=== PATIENT | female | born 1990 | race Caucasian/White ===

== ENCOUNTER 2017-10-17 11:30 | Outpatient (CLI) | payer MEDICAID ==
[~2017-10-17] VITALS: Ht 165.1 cm; Wt 84.0 kg
[~2017-10-17 11:30] MED LIST: CALC-649; FERR27TA; PREN1TAB49
[2017-10-17 11:33] VITALS: BP 136/86; PULSE 73; RESP 19; Ht 165.1 cm; Wt 84.0 kg
[2017-10-17] MEDS ORDERED: LEVO200T6 PO (11:36)
--- NOTE | 2017-10-17 12:44 | RADRPT ---
PROCEDURE: US OB. CLINICAL INDICATION: Size and dates TECHNIQUE: Multiple sonographic images of the pelvis and gravid uterus were obtained. The images were reviewed on a PACS workstation. COMPARISON: No prior studies are available for comparison. FINDINGS: There is a single viable intrauterine gestation. Cardiac activity is present with 146 beats per min [place]. There is a vertex presentation. The placenta is posterior. There is no evidence for an abruption or placenta previa. Measurements were made in order to determine age. The results are as follows: BPD =8.9 cm HC =31.8 cm AC =32.3 cm FL =6.6 cm Estimated gestational age of approximately 35 weeks and 4 days based on ultrasound measurements. Clinical age: 33 weeks and 6 days. The estimated date of delivery is 11/17/17, based on ultrasound measurements. The EFW = 2714 g, 89%, based on LMP age. RPTAT: AA IMPRESSION: Single viable intrauterine gestation of approximately 35 weeks and 4 days based on ultrasound measu rements. Larger than clinical age by almost 2 weeks. .Erick Conner MD, MD Date Time Electronically viewed and signed by .Erick Conner MD, on 10/17/2017 12:44 .S/
--- NOTE | 2017-10-17 12:46 | RADRPT ---
PROCEDURE: US OB biophysical profile. Ultrasound cervix CLINICAL INDICATION: decreased movements, vaginal spotting TECHNIQUE: Multiple sonographic images of the pelvis were obtained. In addition, transvaginal joao ges of the cervix were obtained. The images were reviewed on a PACS workstation. COMPARISON: No prior studies are available for comparison. FINDINGS: The cervix measures 2.3 cm in length. There is a single viable intrauterine gestation. Cardiac activity is present with 146 beats per min [place]. There is a vertex presentation. The placenta is posterior. There is no evidence of placental abruption. There is a normal amount of amniotic fluid with an MANUEL = 14.7 cm. Biophysical profile: movement 2/2 tone 2/2. breathing 2/2 MANUEL 2/2 Total 05/29 RPTAT: AA . IMPRESSION: Normal biophysical profile. Cervix measures 2.3 cm in length. .Erick Conner MD, MD Date Time Electronically viewed and signed by .Erick Conner MD, on 10/17/2017 12:45 .S/
[2017-10-17 14:12] LABS: ADD UMIC YES; UR ASCORBIC ACID NEGATIVE (NEGATIVE); UR BILIRUBIN (Dip) NEGATIVE (NEGATIVE); UR BLOOD (Dip) 3+ mg/dL (NEGATIVE); UR CLARITY SLIGHTLY CLOUDY (CLEAR); UR COLOR YELLOW (YELLOW); UR GLUCOSE (Dip) NEGATIVE (NEGATIVE); UR KETONES (Dip) NEGATIVE (NEGATIVE); UR LEUKOCYTE ESTERASE (Dip) 2+ Leu/ul (NEGATIVE); UR MUCUS FEW /HPF (NONE SEEN); UR NITRITE (Dip) NEGATIVE (NEGATIVE); UR RBC 1 /HPF (0-5); UR SPECIFIC GRAVITY (Dip) 1.017 (1.003-1.030); UR SQUAMOUS EPITHELIAL CELL FEW /HPF (FEW); UR TOTAL PROTEIN (Dip) NEGATIVE (NEGATIVE); UR UROBILINOGEN (Dip) NEGATIVE (NEGATIVE)
[2017-10-17] MEDS ORDERED: BETAMET NA PHOS/AC(6 MG/ML) 5ML INJ IM ONE (15:00)
--- NOTE | 2017-10-17 16:15 | TRIAGE ---
OB Triage Datetime Report Generated by CPN: 10/17/2017 16:14 Datetime: 10/17/2017 15:34 Labor Evaluation Frequency: 0 Monitor Mode: External Pattern: Normal: <= 5 Contractions in 10 Minutes Resting Tone [place]: Relaxed Heart Rate FHR Baseline Rate: 125 Monitor Mode: External US Variability: Moderate 6-25 bpm Accelerations: 10X10 Decelerations: None Category: Category I Pain Assessment Pain Scale: 0 Pain Presence: None/Denies Pain Type: N/A Pain Goal: 10 Pain Relief Measures: Comfort Measures Datetime: 10/17/2017 15:08 Decelerations: None Datetime: 10/17/2017 14:50 Stage of : OB Triage Datetime: 10/17/2017 14:19 Labor Evaluation Frequency: 0 Monitor Mode: External Resting Tone [place]: Relaxed Heart Rate FHR Baseline Rate: 135 Monitor Mode: External US Variability: Moderate 6-25 bpm Accelerations: 10X10 Decelerations: None Category: Category I Pain Assessment Pain Scale: 0 Pain Presence: None/Denies Pain Type: N/A Pain Goal: 3 Pain Relief Measures: Comfort Measures Datetime: 10/17/2017 13:19 Labor Evaluation Frequency: 0 Monitor Mode: External Pattern: Normal: <= 5 Contractions in 10 Minutes Resting Tone [place]: Relaxed Heart Rate FHR Baseline Rate: 125 Monitor Mode: External US Variability: Moderate 6-25 bpm Accelerations: 10X10 Decelerations: None Category: Category I Pain Assessment Pain Scale: 0 Pain Presence: None/Denies Pain Type: N/A Pain Goal: 3 Pain Relief Measures: Comfort Measures Datetime: 10/17/2017 13:13 Stage of : OB Triage Datetime: 10/17/2017 12:19 Labor Evaluation Frequency: 0 Monitor Mode: External Resting Tone [place]: Relaxed Heart Rate FHR Baseline Rate: 145 Monitor Mode: External US Variability: Moderate 6-25 bpm Decelerations: None Category: Category I Pain Assessment Pain Scale: 0 Pain Presence: None/Denies Pain Type: N/A Pain Goal: 3 Pain Relief Measures: Comfort Measures Datetime: 10/17/2017 12:04 Stage of : OB Triage Datetime: 10/17/2017 11:37 EGA: 33.6 Datetime: 10/17/2017 11:30 Assessment Type: Triage Time of Arrival: 10/17/2017 11:30 Arrived By: Ambulatory Arrived From: Home Chief Complaint: PT CAME IN C/O THAT SHE HAD SPOTTED LAST NIGHT AND DESCRIBES IT A LIGHT PINK C OLOR. DENIES HAVING ANY BLEEDING AT THIS TIME AND STATES + MOVEMENT. PT DENIES ANY OTHER COMPL ICATION Movement: Present Contractions: Denies/Absent Rupture of Membranes: Denies Vaginal Bleeding: None Vaginal Discharge: Denies Recent Sexual Intercouse: Denies Abdominal Trauma: Not Applicable Patient Complaints: Other Additional Patient Complaints: NONE Time Provider Notified: 10/17/2017 13:13 Provider Notified: DANIEL Initial Plan: NST AND BPP Maternal Assessment Level of Consciousness: Fully Conscious DTR's/Clonus: DTRs 2+; No Clonus Headache: Denies Blurred Vision: No Respiratory Effort: Unlabored; Regular Rhythm; Equal Expansion Breath Sounds, Left: Clear and Equal Breath Sounds, Right: Clear and Equal Nausea/Vomiting: Denies RUQ Epigastric Pain: Denies Lower Extremities Edema: None Degree: None Upper Extremities Edema: None Degree: None Facial Edema: None Fall Risk Assessment History of Falling: (0) No Secondary Diagnosis: (0) No Ambulatory Aid: (0) Bedrest/Nurse Assist IV Therapy: (0) No Gait: (0) Normal/Bedrest/Immobile Mental Status: (0) Oriented to Own Ability Fall Score: 0 Fall Risk Score Definition: No Risk: No action required
--- NOTE | 2017-10-17 17:31 | PN ---
Triage Information Date/Time 10/17/2017 Reason for visit: spotting Weeks of Gestation 33 weeks and 6 days /Para Diabetes: none Hypertention: none Additional information 27-year-old with IUP at 33 weeks and 6 days presented with complaint of spotting after urination. She denies any dysuria, leaking of fluid, vaginal discharge, decreased movement or uterine contractions. Patient noted to have borderline short cervix. Cervical length: 2.3 cm Objective Vital Signs Date Time Temp Pulse Resp B/P Pulse Ox O2 Delivery O2 Flow Rate FiO2 10/17/17 11:33 98.2 73 19 136/86 99 Room Air Heart Rate: 130's Contractions: None Exam General appearance: Alert and oriented 4. Patient does not appear to be in any acute distress. Abdomen: Soft, gravid, fundal height consistent with gestational age NST: Category 1 [place] no contractions UA: 3+ blood and 2+ leukocyte esterase consistent with possible UTI Rh: Positive Cervical length: 2.3 cm Results/Medications Results 24 hrs Laboratory Tests Test 10/17/17 13:15 Urine Color YELLOW Urine Clarity SLIGHTLY CLOUDY A Urine pH 7.0 Urine Specific [place] 1.017 Urine Ketones NEGATIVE Urine Nitrite NEGATIVE Urine Bilirubin NEGATIVE Urine Urobilinogen NEGATIVE Urine Leukocyte Esterase 2+ H Urine Microscopic RBC 1 Urine Microscopic WBC 4 Urine Squamous Epithelial Cells FEW Urine Mucus FEW A Urine Hemoglobin 3+ H Urine Glucose NEGATIVE Urine Total Protein NEGATIVE Imaging Results PROCEDURE: US OB biophysical profile. Ultrasound cervix CLINICAL INDICATION: decreased movements, vaginal spotting TECHNIQUE: Multiple sonographic images of the pelvis were obtained. In addition, transvaginal images of the cervix were obtained. The images were reviewed on a PACS workstation. COMPARISON: No prior studies are available for comparison. FINDINGS: The cervix measures 2.3 cm in length. There is a single viable intrauterine gestation. Cardiac activity is present with 146 beats per minute. There is a vertex presentation. The placenta is posterior. There is no evidence of placental abruption. There is a normal amount of amniotic fluid with an MANUEL = 14.7 cm. Biophysical profile: movement 2/2 tone 2/2. breathing 2/2 MANUEL 2/2 Total 8/8 RPTAT: AA . IMPRESSION: Normal biophysical profile. Cervix measures 2.3 cm in length. Disposition: Discharge Assessment/Plan IUP at 33 weeks and 6 days Spotting after urination UA consistent with UTI No clear evidence of labor. Cervix is borderline shorts: Cervical length 2.3 cm No contraction the monitor seen Rh+ We will treat for UTI. Treatment with Keflex 500 mg 4 times daily for 7 days will be given. Instruction for adequate hydration discussed Patient was advised to get steroid due to possibility and risk of labor. Received first dose of steroid in the triage Return to triage tomorrow after 24 hours to receive second dose of steroid Strict labor precaution and kick count and follow-up within 2-3 days with her primary [employer] discussed with the patient Patient verbalized understanding Return to triage as needed having any contraction, fever, chills, decreased movement or any other concern. Patient verbalized understanding. All questions were answered. OPAL SANCHEZ MD Oct 17, 2017 17:31
== END 2017-10-17 16:00 | disposition home or self-care (01) ==
LOC: OBT 11:30 → L-D 11:30 → OBT 16:00
PROVIDERS: ATTEND Obstetrics & Gynecology
DX: O23.43 Unspecified infection of urinary tract in pregnancy, third trimester (principal); O26.853 Spotting complicating pregnancy, third trimester; Z3A.33 33 weeks gestation of pregnancy
CPT/HCPCS: 76815; 76817; 76818; 81001; 96372; J0702; Z7500; G0463

== ENCOUNTER 2017-10-18 15:06 | Outpatient (CLI) | payer OTHER ==
[~2017-10-18] VITALS: Ht 167.6 cm; Wt 84.8 kg
[~2017-10-18 15:06] MED LIST changes: +LEVO200T6 PO
[2017-10-18 15:22] VITALS: Ht 167.6 cm; Wt 84.8 kg
[2017-10-18 15:23] VITALS: BP 119/78; PULSE 94; RESP 18
[2017-10-18] MEDS ORDERED: BETAMET NA PHOS/AC(6 MG/ML) 5ML INJ IM ONE (15:30)
--- NOTE | 2017-10-18 17:36 | TRIAGE ---
OB Triage Datetime Report Generated by CPN: 10/18/2017 17:36 Datetime: 10/18/2017 16:52 Stage of : Antepartum Datetime: 10/18/2017 16:11 Frequency: 0 Monitor Mode: External Resting Tone [place]: Relaxed FHR Baseline Rate: 115 Monitor Mode: External US Variability: Moderate 6-25 bpm Accelerations: 10X10 Decelerations: None Category: Category I Pain Scale: 0 Pain Presence: None/Denies Pain Type: N/A Pain Goal: 3 Pain Relief Measures: Comfort Measures Datetime: 10/18/2017 15:15 Stage of : OB Triage Assessment Type: Triage Level of Consciousness: Fully Conscious DTR's/Clonus: DTRs 2+; No Clonus Headache: Denies Blurred Vision: No Respiratory Effort: Unlabored; Regular Rhythm; Equal Expansion Breath Sounds, Left: Clear and Equal Breath Sounds, Right: Clear and Equal Nausea/Vomiting: Denies RUQ Epigastric Pain: Denies Facial Edema: None Temperature Route: Axillary History of Falling: (0) No Secondary Diagnosis: (0) No Ambulatory Aid: (0) Bedrest/Nurse Assist IV Therapy: (0) No Gait: (0) Normal/Bedrest/Immobile Mental Status: (0) Oriented to Own Ability Fall Score: 0 Fall Risk Score Definition: No Risk: No action required Frequency: 0 Monitor Mode: External Resting Tone [place]: Relaxed FHR Baseline Rate: 125 Monitor Mode: External US Variability: Moderate 6-25 bpm Accelerations: 10X10 Decelerations: None Category: Category I Pain Scale: 0 Pain Presence: None/Denies Pain Type: N/A Pain Goal: 3 Pain Relief Measures: Comfort Measures Datetime: 10/18/2017 15:14 Time of Arrival: 10/18/2017 15:10 EGA: 34.0 Arrived By: Ambulatory Chief Complaint: F/U BETAMETHASONE INJECTION. DENIES LEAKING, BLEEDING, OR UC'S Movement: Present Contractions: Denies/Absent Rupture of Membranes: Denies Vaginal Bleeding: None Vaginal Discharge: Denies Recent Sexual Intercouse: Denies Abdominal Trauma: Not Applicable Time Provider Notified: 10/18/2017 16:52 Provider Notified: JAZMIN Initial Plan: MONITOR, 2ND BETAMETHASONE INJECTION
--- NOTE | 2017-10-18 17:53 | CONS ---
Date/Time of Note Date/Time of Note DATE: 10/18/17 TIME: 17:48 Consultation Date/Type/Reason Admit Date/Time October 18, 2017 OB triage consult This patient is a 27 years old 3 para 1 1 living 1 who had her delivery by section in the past. Her estimated date of confinement is November 29, 2017 which makes her 34 weeks and 1 day today. She came to triage due to urinary traction infection and contractions ,was placed on antibiotic 1 dose of betamethasone was given today today she came in for further follow-up on examination she is a well-developed well-nourished lady no contractions. heart tracing shows a reactive strip, occasional acceleration no decelerations. Her general vital signs are normal with blood pressure 119/78, pulse rate of 94 respiration 18 temperature 98,, Reason for Consultation Current Medications Medications (Trade) Dose Ordered Sig/Pancho Route PRN Reason Start Time Stop Time Status Last Admin Dose Admin Betamethasone Acet/Betameth SodPhos (Celestone Soluspan) 12 mg ONCE ONCE IM 10/18/17 15:30 10/18/17 15:31 DC 10/18/17 15:45 12 MG Constitutional: No chills, No diaphoresis, No disoriented, No febrile, No improved, No no complaints, No other, No poor po, No requiring IVF, No requiring O2 Eyes: No discharge, No no complaints, No other, No pain, No redness, No visual change ENT: No bleeding, No congestion, No discharge, No dysphagia, No no complaints, No other, No pain, No sore throat Respiratory: No cough, No no complaints, No other, No pain, No pleuritic pain, No shortness of breath, No sputum, No wheezing Cardiovascular: No chest pain, No edema, No lightheadedness, No no complaints, No orthopenea, No other, No palpitations, No paroxysmal nocturnal dyspnea Gastrointestinal: No blood, No constipation, No decreased appetite, No diarrhea , No flatus, No nausea, No no complaints, No other, No pain, No passing stool, No vomiting Genitourinary: other (Due to lack of labor pelvic examination was not performed ), No bleeding, No discharge, No dysuria, No flank pain, No hematuria, No no complaints Musculoskeletal: No back pain, No bone/joint pain, No neck pain, No no complaints, No other, No restricted range of motion, No swelling Skin: No bruising, No erythema, No laceration, No no complaints, No other, No pruritis, No rash, No skin lesions Neurologic: other (Knee-jerk reflex was normal), No confusion, No dizziness, No focal-weakness, No headache, No no complaints , No seizure, No syncope Endocrine: No dry skin, No no complaints, No other, No polydypsia, No polyuria , No temp intolerance Additional Comments ..0 Her second dose of betamethasone was given she was discharged home with instruction to rest at home to do the kick count and is any evidence of labor vaginal bleeding or rupture membrane return to triage and of dictation Social History Smoking Status: Never smoker Exam/Review of Systems Vital Signs Vitals Vital Signs Date Time Temp Pulse Resp B/P Pulse Ox O2 Delivery O2 Flow Rate FiO2 10/18/17 15:23 98.0 94 18 119/78 DMITRY WU MD Oct 18, 2017 17:53
== END 2017-10-18 17:15 | disposition home or self-care (01) ==
LOC: L-D 15:06 → OBT 15:06 → L-D 15:09 → OBT 17:15
PROVIDERS: ATTEND Obstetrics & Gynecology
DX: O23.43 Unspecified infection of urinary tract in pregnancy, third trimester (principal); O62.9 Abnormality of forces of labor, unspecified; Z3A.34 34 weeks gestation of pregnancy; Z79.2 Long term (current) use of antibiotics
CPT/HCPCS: 96372; J0702; Z7500; G0463

== ENCOUNTER 2017-11-20 18:52 | Inpatient (IN) | END 2017-11-22 17:15 | disposition home or self-care (01) | DRG 775 ==